=== PATIENT | female | born 1995 | race African-American/Black ===

== ENCOUNTER 2018-02-05 22:56 | Emergency (ER) | payer OTHER ==
[~2018-02-05] VITALS: Ht 160 cm; Wt 63.5 kg
[2018-02-05 23:10] VITALS: BP 109/62
[2018-02-05 23:25] LABS: URINE BILIRUBIN NEGATIVE (Negative); URINE BLOOD 3+ (Negative); URINE CLARITY CLOUDY; URINE COLOR YELLOW; URINE GLUCOSE-RANDOM* NEGATIVE (Negative); URINE KETONES NEGATIVE (Negative); URINE LEUKOCYTES-REFLEX 1+ (Negative); URINE NITRITE-REFLEX NEGATIVE (Negative); URINE PROTEIN (DIPSTICK) 1+ (Negative); URINE SPECIFIC GRAVITY 1.025 (1.005-1.035); URINE UROBILINOGEN 0.2 E.U./dl (0.2-1.0)
[2018-02-05 23:33] LABS: SQUAMOUS 4-10 Moderate /LPF (0-3)
[2018-02-05 23:34] LABS: URINE RBC >20 Many /HPF (0-2)
[2018-02-05 23:35] LABS: BACTERIA-REFLEX >30 Many /HPF (None Seen); CASTS None Seen /LPF (None Seen); CRYSTALS None Seen /LPF (None Seen)
[2018-02-05] MEDS ORDERED: PYRIDIUM200 MG PO (23:46)
[2018-02-05] MEDS ORDERED: BACTRIM DS TAB1 EACH PO (23:46)
== END 2018-02-06 00:10 | disposition home or self-care (01) ==
LOC: ER 22:56
PROVIDERS: Emergency Medicine
DX: N39.0 Urinary tract infection, site not specified (principal)

== ENCOUNTER 2019-10-30 12:25 | Emergency (ER) | payer OTHER ==
[~2019-10-30] VITALS: Ht 160 cm; Wt 68.0 kg
[~2019-10-30 12:25] MED LIST: BACTRIM DS TAB1 EACH PO; PYRIDIUM200 MG PO
[2019-10-30] MEDS ORDERED: PROAIR HFA8.5 GM INH ×2 (12:29→12:53)
[2019-10-30] MEDS ORDERED: FLOVENT HFA12 G1 (12:29)
[2019-10-30] MEDS ORDERED: DULERA 200 MCG/13 GM INH ×2 (12:29→12:53)
[2019-10-30] MEDS ORDERED: FLOVENT HFA12 G1 INH (12:53)
[2019-10-30 13:05] VITALS: BP 105/68
== END 2019-10-30 13:11 | disposition home or self-care (01) ==
LOC: ER 12:25
DX: J45.909 Unspecified asthma, uncomplicated (principal); Z76.0 Encounter for issue of repeat prescription